=== PATIENT | male | born 1990 | race Caucasian/White ===

== ENCOUNTER 2016-07-22 13:57 | Emergency (ER) | payer MEDICAID ==
[2016-07-22 14:24] VITALS: BP 158/70; PULSE 82; RESP 16; TEMP 98.4; O2SAT 94
--- NOTE | 2016-07-22 15:06 | EDPHY ---
H & P Stated Complaint: Rash over body, G/F has strep, ? tick bite Time Seen by Provider: 07/22/16 14:50 HPI/ROS: Chief complaint: Rash, fever HPI: 26-year-old male noticed a generalized rash which started on his trunk and arms yesterday morning. Since that time he has developed some generalized aches and fevers. Patient did note that there was a tick on him Friday morning but had not furrowed deeply into his skin is easily removed. This was when he was at home and lines. No other known exposures. No recent illness. He is fully immunized including for varicella. No headache or stiff neck. No nausea or vomiting. No hearing or vision changes. No numbness or weakness. ROS: 10 point Review of Systems is negative except as noted in the HPI. Past medical history: None Medications: None Allergies: No known drug allergies Physical exam: Gen: Awake, Alert, No Distress HEENT: Nose: no rhinorrhea Eyes: PERRLA, EOMI Mouth: Moist mucosa Neck: Supple, no JVD, no meningismus Chest: nontender, lungs clear to auscultation Heart: S1, S2 normal, no murmur Abd: Soft, non-tender, no guarding Back: no CVA tenderness, no midline tenderness Ext: no edema, non-tender Skin: He has a generalized maculopapular rash most pronounced on the forearms with some on his abdomen couple on his trunk and some on his legs. It is blanching. It is not vesicular. It is sparing the palms and soles. It is non confluent. It is not tender. Neuro: CN II-XII intact, Sensation grossly intact, Strength 5/5 in bilateral upper and lower extremities - Personal History Current Tetanus/Diphtheria Vaccine: Unsure Current Tetanus Diphtheria and Acellular Pertussis (TDAP): Unsure - Medical/Surgical History Hx Asthma: No Hx Chronic Respiratory Disease: No Hx Diabetes: No Hx Cardiac Disease: No Hx Renal Disease: No Hx Cirrhosis: No Hx Alcoholism: No Hx HIV/AIDS: No Other PMH: Appy, inguinal hernia repair. - Social History Smoking Status: Never smoked Constitutional: Initial Vital Signs Temperature (C) 36.9 C 07/22/16 14:20 Heart Rate 82 07/22/16 14:20 Respiratory Rate 16 07/22/16 14:20 Blood Pressure 158/70 H 03/20/17 14:20 O2 Sat (%) 94 07/22/16 14:20 O2 Delivery Mode Room Air Allergies/Adverse Reactions: No Known Allergies Allergy (Unverified 07/22/16 14:24) Home Medications: Medication Instructions Recorded NK [No Known Home Meds] 07/22/16 Medical Decision Making ED Course/Re-evaluation: Patient with a generalized maculopapular rash he states yesterday morning. This occurred 1 day after tick bite. Given that timeframe is unlikely to be car out of took fever. He is otherwise well-appearing and all symptoms are consistent with a viral exanthem. Will discharge alternating ibuprofen and acetaminophen. Take Benadryl for itching. He will follow up with [facility] in 2-3 days for recheck. He will return for worsening symptoms including headache, stiff neck, fevers that are uncontrolled, nausea, vomiting, or any other concerns. Departure - Departure Disposition: Home, Routine, Self-Care Clinical Impression: Viral exanthem Condition: Good Instructions: Viral Exanthem (ED) Additional Instructions: Follow up with the [facility] in 2-3 days for re-evaluation. Return for worsening symptoms including headache, stiff neck, fevers that are uncontrolled with ibuprofen or acetaminophen, nausea, vomiting, or any other concerns. Referrals: NONE *PRIMARY CARE P,. [Primary Care Provider] - As per Instructions [facility],. [Clinic] - As per Instructions
== END 2016-07-22 15:21 | disposition home or self-care (01) ==
DX: B09 Unspecified viral infection characterized by skin and mucous membrane lesions (principal)